=== PATIENT | male | born 1950 | race Caucasian/White ===

== ENCOUNTER → 2019-10-28 | Outpatient (CLI) | payer OTHER ==
--- NOTE | 2019-10-29 19:11 | ECHO ---
DATE OF PROCEDURE: 10/28/2019 REFERRING PHYSICIAN: Dr. Alpesh Patel INDICATION: Hyperlipidemia, unspecified. 2D MEASUREMENTS: Aortic root: 3.4 cm Ventricular septum: 1.77 cm Posterior wall: 0.85 cm Left ventricle diastole: 5.1 cm Left atrium: 3.7 cm Inferior vena cava: 1.2 cm Left atrial volume index: 23 DOPPLER MEASUREMENTS: Aortic valve velocity: 109 cm/s LVOT velocity: 90.1 cm/s No mitral regurgitation. No tricuspid regurgitation. No pulmonic regurgitation. Mitral E velocity: 59.0 cm/s Mitral A velocity: 59.1 cm/s Pulmonary acceleration time: 90 ms MITRAL ANNULAR TISSUE DOPPLER: E prime lateral: 11.1 cm/s E prime septal: 9.7 cm/s DESCRIPTION: Rhythm was sinus. Image quality was fair. No pericardial effusion. This was a 2D, M-mode, color flow Doppler, and pulse wave Doppler examination, including mitral annular tissue Doppler. CONCLUSIONS: 1. Normal echocardiogram. 2. Normal left ventricle internal dimensions and wall thickness. Normal regional left ventricle (LV) wall motion and wall thickening. Normal LV systolic function. Left ventricular ejection fraction (LVEF) 60% by visual estimate. Normal LV diastolic function.
== END ==
LOC: M CARPUL 08:08
PROVIDERS: ATTEND Internal Medicine
DX: E78.5 Hyperlipidemia, unspecified (principal)